=== PATIENT | female | born 1960 | race Caucasian/White ===

== ENCOUNTER 2018-04-11 12:21 | Day surgery (SDC) | payer OTHER, SELFPAY ==
[2018-04-01 07:56] VITALS: BMI 29.0
[2018-04-11] VITALS (7 sets, daily range): BP systolic 117–133; BP diastolic 68–85; PULSE 60–78; RESP 12–22; TEMP 36.1–37.1; O2SAT 95–98; BMI 29.0
--- NOTE | 2018-04-11 13:17 | P.OP_ITS ---
Procedure & Clinicians Procedure: Bunionectomy with 1st metatarsal osteotomy, right foot (80159) Same procedure as scheduled: Yes Indications: Patient has been bothered by a painful bunion deformity and desires at this point to proceed with surgical correction. Surgeon: Jm Suazo Click Yes if Unassisted: Yes Operative Notes Closure Type: primary Specimen(s): none sent Implants & Drains: 2x 2.7mm cortical screws Applied: other (BK removable cast boot) Estimated Blood Loss (mL): 5 Blood products transfused: none Procedure in detail: Operation: The patient was taken from the day surgery area back to the OR via gurney after having been given IV antibiotic prophylaxis. She was placed on the OR table in supine position and general anesthesia induced via LMA. Additional local anesthetic infiltrated around the surgical site was performed with lidocaine with epi. A calf tourniquet was then applied, however, it was not utilized throughout the case. The foot was then prepped and draped in usual sterile fashion from toes to knee. Procedure: Bunionectomy with 1st metatarsal osteotomy, right foot (94180) Attention was directed toward the 1st MTP right foot. A dorsomedial incision was made just medial to the EHL tendon, extending approximately 8 cm. Sharp and blunt dissection were utilized and carried down through subcutaneous tissue layer, taking care to retract all vital structures and a cauterized as necessary for adequate hemostasis. A dorsal medial capsulotomy was performed delivering the 1st metatarsal head. The joint was inspected and found to demonstrate minimal osteoarthritis. A lateral release of the adductor tendon was performed. Attention was then directed toward the medial side where the medial bunion prominence was removed with a sagittal saw, taking care to avoid staking of the metatarsal head. A K-wire was then driven as an apical axis guide through the metaphyseal portion of the metatarsal head. Sagittal saw was used to create a long dorsal and shorter plantar arm. The capital fragment was then translated laterally approximately 5 mm, and temporarily pinned in position with a K-wire. It was then permanently fixated with two 2.7 mm cortical screws from dorsal to plantar following standard AO technique. Good solid compression was obtained. The medial overhanging margin of bone was removed and remodeled as necessary. The wound was then copiously irrigated with antibiotic solution. Site was then closed in layers, closing the capsule, subcu, and skin with 3 0, 4, and 5 0 Vicryl respectively. Steri-Strips were placed. A postop block of 15cc 0.5% Marcaine plain was administered and then a light gauze compression bandage was applied. The patient tolerated the procedure and anesthesia well without any apparent complications. She left the OR with vital signs stable and digital perfusion intact. She will be nonweightbearing in a postop boot until her follow-up visit with me in 1 week. Complications: none Condition: stable Disposition: PACU Plan for aftercare: Follow-up visit with me in the [place] office in 1 week.
[2018-04-11] MEDS: CEFAZOLIN 2 GM/100 ML FROZ.PIGGY IV (15:09)
--- NOTE | 2018-04-11 15:30 | SUR.OPER ---
Supine on padded OR bed, head on pillow, arms secured on padded arm boards at <90 degrees abduction, legs uncrossed, safety belt at thigh, tape over blanket over lower legs.
[2018-04-11] MEDS: LIDOCAINE 2% W/EPI INJ 20 ML INJ (15:39)
[2018-04-11] MEDS: BUPIVACAINE 0.5% (PF) 30 ML VIAL INJ (15:41)
== END 2018-04-11 17:25 | disposition home or self-care (01) ==
PROVIDERS: Family Provider Physician Assistant Medical; PCP Physician Assistant Medical; Visit Provider Podiatrist
PROC: 0QBN0ZZ Excision of Right Metatarsal, Open Approach (ICD-10-PCS; CPT 28292; principal; 2018-04-11 13:45)
DX: M21.611 Bunion of right foot (principal); M79.671 Pain in right foot
CPT/HCPCS: 28296; J0690; J1100; J2250; J2405; J2704; J3010

== ENCOUNTER 2019-01-01 06:29 | Day surgery (SDC) | payer OTHER, SELFPAY ==
[2019-01-01] VITALS (9 sets, daily range): BP systolic 97–118; BP diastolic 60–80; PULSE 62–74; RESP 12–15; TEMP 36.1–37.2; O2SAT 94–99; BMI 28.4
--- NOTE | 2019-01-01 | PATH_ITS ---
[facility] Accession Number: [id number] . 01 Material submitted: . PART A: DUODENUM PART B: GE JUNCTION PART C: ANTRUM . 02 Diagnosis: A. Biopsies, Duodenum: Fragment of normal appearing duodenum mucosa. Normal delicate mucosal villi present. Negative for significant inflammation, dysplasia, and malignancy. . B. GE Junction, Biopsy: Gastroesophageal junction mucosa negative for specialized metaplasia of Young's type esophagus. Chronic inflammation with reactive epithelial changes but negative for true dysplasia. Negative for squamous intraepithelial eosinophils. . C. Biopsy, Antrum: Mucosal hyperemia without associated significant inflammation involving antral and fundic mucosa. Negative for evidence of Helicobacter on H/E stain. Negative for intestinal metaplasia. Negative for dysplasia and malignancy. [facility]/01/02/2019 . 02 Electronically signed: . Tk Rivers MD, Pathologist NPI- [id number] . 01 Gross description: . Part A: DUODENUM: Received in formalin is 1 fragment(s) of blakely, soft tissue measuring 0.2 x 0.2 x 0.2 cm which is entirely submitted and submitted entirely in 1 cassette(s) Part B: GE JUNCTION: Received in formalin are 2 fragment(s) of blakely, soft tissue measuring 0.1 x 0.1 x 0.1 cm to 0.2 x 0.1 x 0.1 cm which is entirely submitted and submitted entirely in 1 cassette(s) Part C: ANTRUM: Received in formalin are 2 fragment(s) of blakely, soft tissue measuring 0.1 x 0.1 x 0.1 cm to 0.3 x 0.2 x 0.2 cm which is entirely submitted and submitted entirely in 1 cassette(s) /[facility] /[facility] . 02 Pathologist provided ICD-10: R10.9 . 02 CPT . 919528, 757772, [id number] Performed at: 01 [facility] [address] [place] [address], [place], [place] [id number] MD Raghav Coleman MD Phone: [phone] Performed at: 02 [facility] [id number] [place], [place] [id number] MD Jackelyn Dudley MD Phone: [phone]
[2019-01-01] MEDS: SODIUM CHLORIDE 0.9% 1,000 ML 100 ML IV (07:27)
[2019-01-01] MEDS: LIDOCAINE 4% SOLN 50 ML 20 ML TOP (09:03)
[2019-01-01] MEDS: TETRACAINE/BENZOCAINE/BUTAMBEN (CETACAINE) BOTTLE 1 SPRAY TOP (09:04)
[2019-01-01] MEDS: fentaNYL 250 MCG/5 ML INJ IV (09:04)
[2019-01-01] MEDS: MIDAZOLAM 5 MG/5 ML VIAL IV (09:05)
--- NOTE | 2019-01-01 09:26 | PM.PREOP ---
Pre-operative Note Interval Note History & Physical reviewed/Exam performed by Physician: Yes Changes to H&P: No
--- NOTE | 2019-01-01 09:26 | PM.OP.1 ---
Operative Date/Time/Diagnoses Date of procedure: 01/01/19 Time of procedure: 09:27 Pre-op diagnosis: Personal history of ulcers and Helicobacter pylori Personal history of colon polyps Post-op diagnosis: same Procedure & Clinicians Procedure: Esophagogastroduodenoscopy with cold forceps biopsies and colonoscopy to the cecum Same procedure as scheduled: Yes Indications: Last colonoscopy approximately 5 years ago Surgeon: Milana Vitale Click Yes if Unassisted: Yes Anesthesia Type: Sedation (Versed 8 mg; fentanyl 250 micro g) Operative Notes Findings: 1. Mild duodenitis without angela ulceration. The changes most pronounced in the 2nd portion of the duodenum 2. Normal-appearing antrum without overt evidence of gastritis 3. GE junction at 36 cm from the incisors without any evidence of hiatal hernia. The mucosal junction is very smooth and regular 4. Normal posterior oropharynx and vocal cords 5. Excellent prep 6. No polyps or mass lesions 7. No AV malformations 8. Very minimal diverticulosis 9. Tortuous sigmoid and transverse colons 10. Grade 2 internal hemorrhoids Closure Type: not applicable Specimen(s): other (Mucosal biopsies of 1-duodenum; 2-antrum; 3-GE junction) Estimated Blood Loss (mL): 1 Procedure in detail: After obtaining informed consent, the patient was brought to the GI suite and placed in the left lateral decubitus position on the examination table. After placement of appropriate monitors, the patient was given incremental doses of Versed and Fentanyl until an appropriate level of sedation was achieved. A time out was held per [facility]COAP protocol. We began with EGD. A bite block was gently placed between the patient's teeth. The endoscope was lubricated and then passed into the patient's posterior oropharynx. The esophagus was cannulated under direct vision and the scope was passed to the second portion of the duodenum without difficulty. The scope was then withdrawn with careful examination of all areas of the upper GI tract and mucosa. In the stomach, the instrument was retroflexed and the GE junction examined. The scope was straightened and the procedure continued with examination of the remainder of the upper GI tract. Findings are noted above. Air was aspirated from the stomach and the endoscope gently removed from the esophagus. The examination table was turned and we continued with the colonoscopy. A digital rectal examination was performed and did not reveal any masses or obstructing lesions. The colonoscope was gently passed into the patient's anus and the entire colon navigated to the level of the cecum with moderate difficulty due to colon tortuosity. Once in the cecum, the scope was withdrawn being sure to go before and beyond all mucosal folds and prominences and get an excellent examination. The findings are noted above. At the level of the rectal vault, the scope was retroflexed and the internal anal canal was examined. The scope was straightened and air aspirated from the colon. The instrument was removed from the patient's body and the procedure was concluded. The patient was allowed to awaken from sedation without difficulty and taken to the post-anesthesia care unit in good condition. Total sedation time was 33 minutes Total colonoscopy withdrawal time was 9 minutes Complications: none Condition: stable Disposition: PACU Plan for aftercare: 1. Discharge to home 2. We will contact you with pathology results and recommendations 3. Plan for next colonoscopy in 5 years due to the personal history of colon polyps
== END 2019-01-01 10:25 | disposition home or self-care (01) ==
PROVIDERS: PCP Physician Assistant Medical; Visit Provider Surgery
PROC: 0DJ08ZZ Inspection of Upper Intestinal Tract, Via Natural or Artificial Opening Endoscopic (ICD-10-PCS; CPT 43235; principal; 2019-01-01 07:45)
PROC: 0DJD8ZZ Inspection of Lower Intestinal Tract, Via Natural or Artificial Opening Endoscopic (ICD-10-PCS; CPT 45378; 2019-01-01 07:45)
DX: Z86.010 Personal history of colon polyps (principal); K21.9 Gastro-esophageal reflux disease without esophagitis; K29.80 Duodenitis without bleeding; K57.30 Diverticulosis of large intestine without perforation or abscess without bleeding; K64.1 Second degree hemorrhoids
CPT/HCPCS: 43239; 45378; 99152; 99153; J2250; J3010